=== PATIENT | female | born 1990 | race Caucasian/White ===

== ENCOUNTER 2021-01-18 21:01 | Observation (INO) ==
[2021-01-18 21:40] LABS: Bilirubin,Urine Negative (Negative); Blood,Urine Negative (Negative); Clarity,Urine Clear (Clear); Color,Urine Colorless (Yellow); Glucose,Urine (UA) Normal (Normal); Ketones,Urine Negative (Negative); Leukocyte Esterase,Urine Negative (Negative); Nitrite,Urine Negative (Negative); Protein,Urine Negative (Neg-Trace); Specific Gravity,Urine 1.009 (1.010-1.025); Urobilinogen,Urine Normal (Normal)
[2021-01-18 21:53] LABS: Basophils # 0.1 K/mcL (0.0-0.2); Basophils % 0.6 %; Eosinophils # 0.2 K/mcL (0.0-0.6); Eosinophils % 1.4 %; Hematocrit 40.4 % (35.3-44.9); Hemoglobin 13.4 g/dL (11.5-15.4); Immature Granulocytes % 0.3 % (0-4); Lymphocytes # 3.1 K/mcL (0.6-4.6); Lymphocytes % 26.4 %; Mean Corpuscular HGB Conc 33.2 g/dL (31.6-35.5); Mean Corpuscular Hemoglobin 29.5 pg (28.0-33.3); Mean Corpuscular Volume 88.8 fL (83.0-100.0); Monocytes # 0.8 K/mcL (0.0-1.3); Monocytes % 6.3 %; Neutrophils # 7.7 K/mcL (1.6-8.9); Platelet Count 281 K/mcL (140-400); Red Blood Count 4.55 M/mcL (3.82-4.97); Red Cell Distribution Width 12.5 % (11.5-14.5); White Blood Count 11.8 K/mcL (4.3-11.1)
[2021-01-18 22:14] LABS: Alanine Aminotransferase 16 Units/L (7-52); Albumin 3.9 g/dL (3.5-5.7); Albumin/Globulin Ratio 1.2 (1.1-2.2); Alkaline Phosphatase 60 Units/L (34-104); Aspartate Amino Transferase 13 Units/L (13-39); BUN/Creatinine Ratio 14 (6-26); Bilirubin,Direct 0.1 mg/dL (0.0-0.2); Bilirubin,Indirect 0.2 mg/dL (0.0-1.0); Bilirubin,Total 0.3 mg/dL (0.3-1.0); Blood Urea Nitrogen 11 mg/dL (6-20); Calcium 9.2 mg/dL (8.6-10.3); Carbon Dioxide 27 mEq/L (23-29); Chloride 103 mEq/L (98-107); Globulin 3.2 g/dL (2.4-3.5); Glucose 98 mg/dL (70-105); Lipase 18 Units/L (11-82); Osmolality,Calculated 283 (280-300); Potassium 3.7 mEq/L (3.5-5.1); Sodium 137 mEq/L (136-145); Total Protein 7.1 g/dL (6.4-8.9); eGFR For African Americans > 60 (> 60); eGFR For Non-African Americans > 60 (> 60)
[2021-01-18] MEDS ORDERED: Isovue-370 500 ML BOTTLE IVP ONE (22:46)
[2021-01-18 23:09] LABS: Troponin I < 0.03 ng/mL (< 0.04)
[2021-01-19] MEDS ORDERED: Piperacillin/Tazobactam 3.375 GM in 0.9 % Sodium Chloride Mini Bag 100 ML IVPB ONE (00:34)
[2021-01-19] MEDS ORDERED: Dexamethasone 4 MG/ML VIAL ONE ×2 (01:07→03:10)
[2021-01-19] MEDS ORDERED: Lidocaine -MPF 4% 5 ML AMPUL ONE (01:07)
[2021-01-19] MEDS ORDERED: *HR* Rocuronium Bromide 50 MG/5 ML VIAL ONE (01:07)
[2021-01-19] MEDS ORDERED: Lidocaine -MPF 2% 2 ML VIAL ONE (01:07)
[2021-01-19] MEDS ORDERED: Ondansetron 4 MG/2 ML VIAL ONE ×2 (01:07→01:20)
[2021-01-19] MEDS ORDERED: *HR* Propofol 200 MG/20 ML VIAL IVP ONE (01:08)
[2021-01-19] MEDS ORDERED: *HR* FentaNYL (PF) 100 MCG/2 ML VIAL ONE (01:08)
[2021-01-19] MEDS ORDERED: *HR* Midazolam HCl 2 MG/2 ML VIAL ONE (01:08)
[2021-01-19] MEDS ORDERED: Ondansetron 4 MG/2 ML VIAL IVP PRN ×3 (01:17→04:43)
[2021-01-19] MEDS ORDERED: *HR* HYDROmorphone 2 MG TABLET PO PRN (01:26)
[2021-01-19] MEDS ORDERED: Promethazine 6.25 MG in Water for inj. (sterile) 20 ML IVPB PRN (01:26)
[2021-01-19] MEDS ORDERED: *HR* Labetalol 20 MG/4 ML SYRINGE IVP PRN (01:26)
[2021-01-19] MEDS ORDERED: *HR* HYDROmorphone (PF) 1 MG/ML SYRINGE IVP PRN (01:26)
[2021-01-19] MEDS ORDERED: *HR* OxyCODONE/APAP 5/325 TABLET PO PRN ×2 (01:53→04:43)
[2021-01-19] MEDS ORDERED: Acetaminophen IV 1,000 MG/100 ML BAG IVPB ONE (02:44)
[2021-01-19] MEDS ORDERED: Famotidine 20 MG/2 ML VIAL ONE (02:44)
[2021-01-19] MEDS ORDERED: Ketorolac 30 MG/ML VIAL ONE (03:35)
[2021-01-19] MEDS ORDERED: Neostigmine Methylsulfate 3 MG/3 ML SYRINGE ONE (03:42)
[2021-01-19] MEDS ORDERED: Ketorolac 15 MG/ML VIAL IVP SCH ×2 (06:00)
[2021-01-19] MEDS ORDERED: Piperacillin/Tazobactam 3.375 GM in 0.9 % Sodium Chloride Mini Bag 100 ML IVPB SCH (08:00)
[2021-01-19] MEDS ORDERED: PARoxetine 10 MG TABLET PO SCH (09:00)
[2021-01-19] MEDS ORDERED: *HR* HYDROcodone/Acet 5/325 mg TABLET PO ONE (10:32)
[2021-01-19 10:45] VITALS: BP 103/63
== END 2021-01-19 12:29 | disposition home or self-care (01) ==
LOC: EMEROOARM 21:01 → 3BNU 21:01
PROVIDERS: ADMIT Surgery; ATTEND Surgery